=== PATIENT | female | born 1995 | race Hispanic/Latino ===

== ENCOUNTER 2022-07-13 07:20 | Inpatient (IN) | payer OTHER ==
[~2022-07-13] VITALS: Ht 162.6 cm; Wt 78.9 kg
[2022-07-13] MEDS ORDERED: LACTATED RINGERS 1000ML 1,000 ML IV PRN ×2 (08:00→08:30)
[2022-07-13] MEDS ORDERED: TERBUTALINE SULFATE VIAL 1MG/ML SQ ONE (08:11)
[2022-07-13 08:13] LABS: HEMATOCRIT 39.6 % (36-48); MEAN CORPUSCULAR HEMOGLOBIN 27.4 pg (27.0-33.0); MEAN CORPUSCULAR HGB CONC 32.3 g/dL (32.0-36.0); MEAN CORPUSCULAR VOLUME 84.8 fL (79-99); RED BLOOD CELL COUNT(AUTO) 4.67 MIL/uL (4.00-5.50); RED CELL DISTRIBUTION WIDTH 13.3 % (11.0-15.5); WHITE BLOOD COUNT (AUTO) 11.4 K/uL (4.8-10.8)
[2022-07-13 08:17] LABS: APPEARANCE,URINE CLOUDY (CLEAR); BILIRUBIN,URINE NEGATIVE (NEGATIVE); COLOR,URINE YELLOW (YELLOW); GLUCOSE, URINE (UA) NEGATIVE (NEGATIVE); KETONES,URINE NEGATIVE (NEGATIVE); LEUKOCYTE ESTERASE ,URINE SMALL Leu/uL (NEGATIVE); NITRATE,URINE NEGATIVE (NEGATIVE); OCCULT BLOOD,URINE LARGE (NEGATIVE); PROTEIN,URINE NEGATIVE (NEGATIVE); UROBILINOGEN,URINE 0.2 mg/dL (0.2-1.0)
[2022-07-13 08:29] LABS: AMPHET/METH SCREEN,URINE NEGATIVE (NEGATIVE); BARBITURATE SCREEN, URINE NEGATIVE (NEGATIVE)
[2022-07-13 08:30] LABS: BENZODIAZEPINES SCREEN,URINE NEGATIVE (NEGATIVE); CANNABINOID SCREEN,URINE NEGATIVE (NEGATIVE); COCAINE SCREEN,URINE NEGATIVE (NEGATIVE); PHENCYCLIDINE SCREEN,URINE NEGATIVE (NEGATIVE)
[2022-07-13] MEDS ORDERED: MEPERIDINE-PF 50 MG/ML SYG IVP PRN (08:30)
[2022-07-13] MEDS ORDERED: AMPICILLIN 2GM+NS 100ML 100 ML IV SCH (08:30)
[2022-07-13] MEDS ORDERED: PROMETHAZINE HCL 25 MG/ML 1ML AMPULE IM PRN (08:30)
[2022-07-13] MEDS ORDERED: TERBUTALINE SULFATE VIAL 1MG/ML SQ SCH (08:30)
[2022-07-13] MEDS ORDERED: ROPIVACAINE 0.2% 100ML VIAL 100 ML EP SCH (08:30)
[2022-07-13] MEDS ORDERED: LACTATED RINGERS 500 ML 500 ML IV PRN (08:30)
[2022-07-13] MEDS ORDERED: NALOXONE HCL 0.4 MG/1 ML ML IV PRN (08:30)
[2022-07-13] MEDS ORDERED: AMPICILLIN 1GM+NS 50ML 50 ML IV SCH (08:30)
[2022-07-13] MEDS ORDERED: LACTATED RINGERS 1000ML 1,000 ML IV SCH (08:30)
[2022-07-13] MEDS ORDERED: EPHEDRINE SULFATE 50 MG/ML AMPULE IVP PRN (08:30)
[2022-07-13 08:34] LABS: BACTERIA,URINE Moderate /HPF (None Seen); RBC,URINE 0-1 /HPF (0-1)
[2022-07-13 08:35] LABS: SQUAMOUS EPITHELIAL CELL,UR Few /HPF (0-2)
[2022-07-13 09:48] LABS: RAPID PLASMA REAGIN NONREACTIVE (NONREACTIVE)
[2022-07-13] MEDS ORDERED: FENTANYL CITRATE PF 50 MCG/1 ML 2ML VIAL ONE (10:16)
[2022-07-13] MEDS: OXYTOCIN-LR 20 UNITS/1000 ML 1,000 ML IV SCH ×2 (10:52→16:13)
[2022-07-13] MEDS ORDERED: OXYTOCIN-LR 20 UNITS/1000 ML 1,000 ML IV SCH ×2 (11:00→16:00)
[2022-07-13 11:17] VITALS: BP 94/59
[2022-07-13] MEDS ORDERED: LIDOCAINE HCL 400MG/20ML VIAL ONE (15:00)
[2022-07-13] MEDS ORDERED: METHYLERGONOVINE MALEATE 0.2 MG/1 ML ML ONE (15:04)
[2022-07-13] MEDS ORDERED: BENZOCAINE/LANOLIN/ALOE VERA 60 ML AEROSOL TP PRN (16:00)
[2022-07-13] MEDS ORDERED: ACETAMINOPHEN WITH CODEINE 1 TAB TAB PO PRN (16:00)
[2022-07-13] MEDS ORDERED: DIPH,PERTUSS(ACELL),TET VAC/PF 0.5 ML VIAL IM PRN (16:00)
[2022-07-13] MEDS ORDERED: LANOLIN 30GM OINTMENT TP PRN (16:00)
[2022-07-13] MEDS ORDERED: MEASLES/MUMPS/RUBELLA VACCINE, LIVE 0.5 ML/VIAL SQ PRN (16:00)
[2022-07-13] MEDS ORDERED: ACETAMINOPHEN 325 MG TAB PO PRN (16:00)
[2022-07-13] MEDS ORDERED: WITCH HAZEL 1 PAD TP PRN (16:00)
[2022-07-13 19:25] VITALS: BP 109/67
[2022-07-13] MEDS: DOCUSATE SODIUM 100 MG CAP PO SCH (20:24)
[2022-07-13] MEDS ORDERED: [UNRECOGNIZED DRUG - OTHER] PO (20:56)
[2022-07-13 23:32] VITALS: BP 115/66
[2022-07-13] MEDS: IBUPROFEN 600 MG TABLET PO PRN (23:32)
[2022-07-14 04:00] VITALS: BP 110/65
[2022-07-14 06:49] LABS: HEMATOCRIT 32.1 % (36-48); MEAN CORPUSCULAR HEMOGLOBIN 27.6 pg (27.0-33.0); MEAN CORPUSCULAR HGB CONC 32.7 g/dL (32.0-36.0); MEAN CORPUSCULAR VOLUME 84.5 fL (79-99); RED BLOOD CELL COUNT(AUTO) 3.8 MIL/uL (4.00-5.50); RED CELL DISTRIBUTION WIDTH 13.3 % (11.0-15.5)
[2022-07-14 08:15] VITALS: BP 107/56
[2022-07-14] MEDS: IBUPROFEN 600 MG TABLET PO PRN (10:28)
[2022-07-14] MEDS: DOCUSATE SODIUM 100 MG CAP PO SCH (10:28)
[2022-07-14 11:36] VITALS: BP 96/59
[2022-07-16 07:15] LABS: RUBELLA IGM ANTIBODY <20.0 AU/mL (0.0-19.9)
== END 2022-07-14 17:10 | disposition home or self-care (01) | DRG 807 ==
LOC: EDH 07:20 → OBSVTOIN 07:21 → INTOOBSV 07:21 → LDH 07:21 → WSH 19:00
PROVIDERS: ADMIT Obstetrics & Gynecology; ATTEND Obstetrics & Gynecology
PROC: 10E0XZZ Delivery of Products of Conception, External Approach (ICD-10-PCS; principal; 2022-07-13)
PROC: 0KQM0ZZ Repair Perineum Muscle, Open Approach (ICD-10-PCS; 2022-07-13)
PROC: 3E0R3BZ Introduction of Anesthetic Agent into Spinal Canal, Percutaneous Approach (ICD-10-PCS; 2022-07-13)
PROC: 00HU33Z Insertion of Infusion Device into Spinal Canal, Percutaneous Approach (ICD-10-PCS; 2022-07-13)
PROC: 10907ZC Drainage of Amniotic Fluid, Therapeutic from Products of Conception, Via Natural or Artificial Opening (ICD-10-PCS; 2022-07-13)
DX: O76 Abnormality in fetal heart rate and rhythm complicating labor and delivery (principal); Z37.0 Single live birth; O70.1 Second degree perineal laceration during delivery; O77.0 Labor and delivery complicated by meconium in amniotic fluid; Z3A.40 40 weeks gestation of pregnancy
CPT/HCPCS: 36415; 76805; 80305; 81001; 85027; 86592; 86701; 86762; 86850; 86900; 86901; 87088; 87340; 87390; 90715; A4314; G0378; J0290; J2210; J2590; J2795; J3010; J3105; J3490; J7120